=== PATIENT | male | born 1940 | race Caucasian/White ===

== ENCOUNTER → 2020-06-13 | Outpatient (CLI) | payer MEDICARE ==
[~2020-06-13] MED LIST: ALBUTEROL2.5 MG/3 M INH; ASPIRIN CHEWABL81 MG PO; DECADRON6 MG PO; LEVAQUIN750 MG PO; MECLIZINE HCL12.5 MG PO; METOPROLOL SUCC25 MG PO; NORCO 5-325 TA1 EACH PO; NORVASC5 MG PO; PLAVIX75 MG PO; PROVENTIL HFA6.7 GM INH; ROBITUSSIN AC480 ML PO; SYNTHROID 137137 MCG PO
== END ==
LOC: HEART 5 14:56
DX: R06.02 Shortness of breath (principal); I51.7 Cardiomegaly; I37.1 Nonrheumatic pulmonary valve insufficiency; I51.89 Other ill-defined heart diseases
CPT/HCPCS: 93306

== ENCOUNTER → 2020-08-11 | Outpatient (CLI) | payer MEDICARE | LOC: RAD 11:47 | DX: R06.02 Shortness of breath (principal) | CPT/HCPCS: 71046 ==

== ENCOUNTER → 2020-08-12 | Outpatient (CLI) | payer MEDICARE | LOC: RAD 07:52 | DX: R13.10 Dysphagia, unspecified (principal); K44.9 Diaphragmatic hernia without obstruction or gangrene; K21.9 Gastro-esophageal reflux disease without esophagitis | CPT/HCPCS: 74246 ==

== ENCOUNTER → 2020-09-14 | Outpatient (CLI) | payer MEDICARE | LOC: EXRD 14:57 | DX: R13.10 Dysphagia, unspecified (principal); E07.89 Other specified disorders of thyroid | CPT/HCPCS: 76536 ==